=== PATIENT | male | born 1995 | race Two or more races ===

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

== ENCOUNTER 2021-03-17 19:40 | Emergency (ER) | payer BC ==
[~2021-03-17] VITALS: Ht 175.3 cm; Wt 97.5 kg
[2021-03-17 21:20] LABS: Basophils # (auto) 0 10 ^3/uL (0-0.2); Basophils % (auto) 0.4 % (0.0-2.0); Eosinophils # (auto) 0.2 10 ^3/uL (0-0.8); Eosinophils % (auto) 1.7 % (0.0-7.0); Hemoglobin 15.9 g/dL (13.5-17.5); Lymphocytes # (auto) 2.5 10 ^3/uL (0.4-5.4); Lymphocytes % (auto) 23.8 % (10.0-50.0); Mean Corpuscular Hemoglobin 31.7 pg (28.0-32.0); Mean Corpuscular Hgb Conc. 34.6 g/dL (32.0-36.0); Mean Corpuscular Volume 91.5 fL (80.0-100.0); Monocytes # (auto) 0.7 10 ^3/uL (0-1.3); Monocytes % (auto) 6.7 % (0.0-12.0); Neutrophils # (auto) 7.1 10 ^3/uL (1.6-8.6); Neutrophils % (auto) 67.4 % (37.0-80.0); Platelet Count (auto) 262 10^3/uL (140-450); Red Blood Cells 5.02 10^6/uL (4.5-5.90); Red Cell Distribution Width 13.3 % (11.8-14.3); White Blood Cell 10.5 10^3/uL (4.4-10.8)
[2021-03-17 21:30] LABS: Urine Bacteria FEW /hpf (None Seen); Urine Blood Negative /uL (Negative); Urine Mucus FEW (None Seen); Urine Specific Gravity 1.028 (1.001-1.035); Urine WBC 1 /hpf (0 - 3)
[2021-03-17 21:30] LABS: Albumin 4.3 g/dL (3.4-5.0); Calcium 8.9 mg/dL (8.5-10.1); Potassium 3.6 mmol/L (3.5-5.1)
[2021-03-17 21:33] LABS: BUN/Creatinine Ratio 14.2; Bilirubin, Total 0.4 mg/dL (0.2-1.0); Total Protein 7.9 g/dL (6.4-8.2)
[2021-03-18] MEDS ORDERED: KETOROLAC TROMETH 60MG/2ML VIAL IM ONE (00:30)
[2021-03-18 07:48] VITALS: BP 141/85
== END 2021-03-18 07:52 | disposition home or self-care (01) ==
LOC: ER 19:41
DX: S39.012A Strain of muscle, fascia and tendon of lower back, initial encounter (principal); J45.909 Unspecified asthma, uncomplicated; F10.20 Alcohol dependence, uncomplicated; Y90.9 Presence of alcohol in blood, level not specified; W18.39XA Other fall on same level, initial encounter; Y93.89 Activity, other specified; Y92.89 Other specified places as the place of occurrence of the external cause; Y99.8 Other external cause status
CPT/HCPCS: 36415; 71250; 74176; 80053; 81001; 85025; 96372; 99285; J1885

== ENCOUNTER 2023-12-27 04:38 | Emergency (ER) | payer BC, MEDICAID ==
[~2023-12-27] VITALS: Ht 175.3 cm; Wt 78.0 kg
[2023-12-27 04:39] VITALS: BP 129/80; PULSE 59; RESP 18; O2SAT 99
== END 2023-12-27 08:17 | disposition left against medical advice (07) ==
LOC: ER 04:38
DX: R10.9 Unspecified abdominal pain (principal); Z53.21 Procedure and treatment not carried out due to patient leaving prior to being seen by health care provider

== ENCOUNTER 2024-02-16 06:00 | Emergency (ER) | payer SELFPAY | END 2024-02-16 06:58 | disposition left against medical advice (07) | LOC: ER 06:00 | DX: K59.00 Constipation, unspecified (principal); Z53.21 Procedure and treatment not carried out due to patient leaving prior to being seen by health care provider ==

== ENCOUNTER 2024-05-27 07:09 | Emergency (ER) | payer SELFPAY ==
[~2024-05-27] VITALS: Ht 172.7 cm; Wt 86.5 kg
[2024-05-27 09:01] LABS: Basophils # (auto) 0 10 ^3/uL (0-0.2); Basophils % (auto) 0.2 % (0.0-2.0); Eosinophils # (auto) 0.2 10 ^3/uL (0-0.8); Eosinophils % (auto) 1.8 % (0.0-7.0); Hemoglobin 15.9 g/dL (13.5-17.5); Lymphocytes # (auto) 1.5 10 ^3/uL (0.4-5.4); Lymphocytes % (auto) 11.6 % (10.0-50.0); Mean Corpuscular Hemoglobin 33.7 pg (28.0-32.0); Mean Corpuscular Hgb Conc. 34.6 g/dL (32.0-36.0); Mean Corpuscular Volume 97.3 fL (80.0-100.0); Monocytes # (auto) 0.6 10 ^3/uL (0-1.3); Neutrophils # (auto) 10.3 10 ^3/uL (1.6-8.6); Neutrophils % (auto) 81.4 % (37.0-80.0); Platelet Count (auto) 258 10^3/uL (140-450); Red Blood Cells 4.73 10^6/uL (4.5-5.90); Red Cell Distribution Width 13.5 % (11.8-14.3); White Blood Cell 12.6 10^3/uL (4.4-10.8)
[2024-05-27] MEDS: PROCHLORPERAZINE EDISYLATE 5 MG/ML 2ML VIAL IV ONE (09:02)
[2024-05-27] MEDS: SODIUM CHLORIDE 0.9% 1,000 ML IVB ONE (09:02)
[2024-05-27] MEDS: PANTOPRAZOLE 40 MG/10 ML VIAL INJ IV ONE (09:03)
[2024-05-27] MEDS: MORPHINE SULFATE 4 MG/ML SYR/VIAL IV ONE (09:05)
[2024-05-27 09:06] VITALS: TEMP 97; O2SAT 98
[2024-05-27 09:15] LABS: Amphetamine Screen, Urine Neg (NEGATIVE)
[2024-05-27 09:16] LABS: Alanine Aminotransferase 30 U/L (7-40); Albumin 4.4 g/dL (3.2-4.8); Alkaline Phosphatase 68 U/L (46-116); Anion Gap 6 (5-15); Aspartate Aminotransferase 19 U/L (13-40); BUN/Creatinine Ratio 10.1 (10.0-20.0); Bilirubin, Total 0.8 mg/dL (0.2-1.0); Blood Urea Nitrogen 8 mg/dL (9-23); Calcium 9.2 mg/dL (8.7-10.4); Carbon Dioxide 27 mmol/L (20-30); Chloride 106 mmol/L (98-107); Glucose 129 mg/dL (74-106); Lipase 33 U/L (12-53); Potassium 3.6 mmol/L (3.5-5.1); Sodium 139 mmol/L (136-145)
[2024-05-27 09:16] LABS: Barbiturate Scree,Urine Neg (NEGATIVE); Benzodiazephine Screen, Urine Neg (NEGATIVE); Cocaine Screen, Urine Pos (NEGATIVE); Opiate Scree,Urine Neg (NEGATIVE)
[2024-05-27 09:17] LABS: Cannabinoid Screen, Urine Pos (NEGATIVE); Phencyclidine Screen, Urine Neg (NEGATIVE)
[2024-05-27 09:58] VITALS: BP 138/92; PULSE 87; RESP 18
== END 2024-05-27 12:38 | disposition left against medical advice (07) ==
LOC: ER 07:12
DX: K80.20 Calculus of gallbladder without cholecystitis without obstruction (principal); R10.13 Epigastric pain; F14.90 Cocaine use, unspecified, uncomplicated; F12.90 Cannabis use, unspecified, uncomplicated; F17.210 Nicotine dependence, cigarettes, uncomplicated
CPT/HCPCS: 36415; 76705; 80053; 80307; 83690; 85025; 96361; 96374; 96375; 99285; J0780; J2270; J2470; J7030

== ENCOUNTER 2024-05-30 08:13 | Inpatient (IN) | payer MEDICAID ==
[~2024-05-30] VITALS: Ht 172.7 cm; Wt 88.8 kg
--- NOTE | 2024-05-30 09:59 | ED.PDOC ---
GI ASSESSMENT HPI Comments 29 year-old male presents to the ED with a chief complaint of abdominal pain. Patient states that he came to the ED 05/27/24 for epigastric abdominal pain, was diagnosed with gallstones, and left before hospital admission. Patient states that since last ED visit, he has had epigastric abdominal pain with associated nausea and dizziness. Patient has no further symptoms at this time and otherwise denies V/D, fever, chills, migraine, dysuria, hematuria, or constipation. Chief Complaint: Abdominal Pain Time Seen by MD: 09:50 Primary Care Provider: unknown Reviewed Notes: Medications, Allergies Allergies: Coded Allergies: NO KNOWN ALLERGIES (Unverified , 12/31/16) Information Source: Patient Mode of Arrival: Ambulatory Timing: Days (X4 ) Duration: Since onset Prehospital treatment: None Vomitus: None Severity: Moderate Pain Location: Epigastric Associated sign and symptoms: Nausea, Other (Dizziness ) Past Medical History PAST MEDICAL HISTORY: Denies Surgical History: Denies all surgeries Family History Family History: Reviewed,noncontributory to illness, No family hx of Cancer, No family hx of DM, No family hx of Heart rehan, No family hx of HTN, No family hx ofKidney rehan, No family hx of Liver rehan, No family hx of Lung rehan, No family hx of Stroke Social History Smoker: Cigarettes Alcohol: Occasionally Drugs: Denies Drug Use Lives In: Home Constitutional: denies: chills, diaphoresis, fatigue, fever, malaise, sweats, weakness, others EENTM: denies: blurred vision, double vision, ear bleeding, ear discharge, ear drainage, ear pain, ear ringing, eye pain, eye redness, hearing loss, mouth pain, mouth swelling, nasal discharge, nose bleeding, nose congestion, nose pain, photophobia, tearing, throat pain, throat swelling, voice changes, others Respiratory: denies: cough, hemoptysis, orthopnea, SOB at rest, shortness of breath, SOB with excertion, stridor, wheezing, others Cardiovascular: denies: chest pain, dizzy spells, diaphoresis, Dyspnea on exertion, edema, irregular heart beat, left arm pain, lightheadedness, palpitations, PND, syncope, others Gastrointestinal: reports: abdominal pain; denies: abdomen distended, blood streaked bowels, constipated, diarrhea, dysphagia, difficulty swallowing, hematemesis, melena, nausea, poor appetite, poor fluid intake, rectal bleeding, rectal pain, vomiting, others Genitourinary: denies: burning, dysuria, flank pain, frequency, hematuria, incontinence, penile discharge, penile sore, pain, testicle pain, testicle swelling, urgency, others Neurological: denies: dizziness, fainting, headache, left sided numbness, left sided weakness, numbness, paresthesia, pre-existing deficit, right sided numbness, right sided weakness, seizure, speech problems, tingling, tremors, weakness, others Musculoskeletal: denies: back pain, gout, joint pain, joint swelling, muscle pain, muscle stiffness, neck pain, others Integumetry: denies: bruises, change in color, change in hair/nails, dryness, laceration, lesions, lumps, rash, wounds, others Allergic/Immunocompromised: denies: Difficulty Healing, Frequent Infections, Hives, Itching, others Hematologic/Lymphatic: denies: anemia, blood clots, easy bleeding, easy bruising, swollen glands, others Endocrine: denies: excessive hunger, excessive sweating, excessive thirst, excessive urination, flushing, intolerance to cold, intolerance to heat, unexplained weight gain, unexplained weight loss, others Psychiatric: denies: anxiety, bipolar disorder, depression, hopeless, panic disorder, schizophrenia, sleepless, suicidal, others All Other Systems: Reviewed and Negative Physical Exam General Appearance: Moderate Distress, Normal HEENT: Normal ENT Inspection, Pharynx Normal, TMs Normal Neck: Full Range of Motion, Non-Tender, Normal, Normal Inspection Respiratory: Chest Non-Tender, Lungs Clear, No Accessory Muscle Use, No Respiratory Distress, Normal Breath Sounds Cardiovascular: No Edema, No JVD, No Murmur, No Gallop, Normal Peripheral Pulses, Regular Rate/Rhythm Breast Exam: Deferred Gastrointestinal: Epigastric (Pain Upon palpation ), No Organomegaly, No Pulsatile Mass, Normal Bowel Sounds, Soft Genitalia: Deferred Pelvic: Deferred Rectal: Deferred Extremities: No calf tenderness, Normal capillary refill, Normal inspection, Normal range of motion, Non-tender, No pedal edema Musculoskeletal : Apperance: Normal Neurologic: Alert, washateria attendant II-XII nml as Tested, No Motor Deficits, Normal Affect, Normal Mood, No Sensory Deficits Cerebellar Function: Normal Reflexes: Normal Skin: Dry, Normal Color, Warm Lymphatic: No Adenopathy Was a procedure done? Was a procedure done?: No GI differential Dx Differential Diagnosis: Constipation, Gastritis/PUD, Dehydration, Bacterial, Parasitic, Viral Other Differential Diagnosis Gallstones X-Ray, Labs, Meds, VS Vital Signs Date Time Temp Pulse Resp B/P (MAP) Pulse Ox O2 Delivery O2 Flow Rate FiO2 05/30/24 08:43 98.4 76 20 129/85 (100) 98 Lab Test 05/30/24 10:20 Range/Units White Blood Count 12.8 H 4.4-10.8 10^3/uL Red Blood Count 4.95 4.5-5.90 10^6/uL Hemoglobin 16.3 13.5-17.5 g/dL Hematocrit 47.7 41.0-53.0 % Mean Corpuscular Volume 96.4 80.0-100.0 fL Mean Corpuscular Hemoglobin 32.9 H 28.0-32.0 pg Mean Corpuscular Hemoglobin Concent 34.1 32.0-36.0 g/dL Red Cell Distribution Width 13.7 11.8-14.3 % Platelet Count 269 140-450 10^3/uL Mean Platelet Volume 8.7 6.9-10.8 fL Neutrophils (%) (Auto) 82.1 H 37.0-80.0 % Lymphocytes (%) (Auto) 9.7 L 10.0-50.0 % Monocytes (%) (Auto) 7.1 0.0-12.0 % Eosinophils (%) (Auto) 1.0 0.0-7.0 % Basophils (%) (Auto) 0.1 0.0-2.0 % Neutrophils # (Auto) 10.5 H 1.6-8.6 10 ^3/uL Lymphocytes # (Auto) 1.2 0.4-5.4 10 ^3/uL Monocytes # (Auto) 0.9 0-1.3 10 ^3/uL Eosinophils # (Auto) 0.1 0-0.8 10 ^3/uL Basophils # (Auto) 0 0-0.2 10 ^3/uL Nucleated Red Blood Cells 0.1 % Sodium Level 141 136-145 mmol/L Potassium Level 3.6 3.5-5.1 mmol/L Chloride Level 105 98-107 mmol/L Carbon Dioxide Level 29 20-30 mmol/L Anion Gap 7 5-15 Blood Urea Nitrogen 12 9-23 mg/dL Creatinine 0.94 0.700-1.30 mg/dL Glomerular Filtration Rate Calc 114 >90 mL/min BUN/Creatinine Ratio 12.8 10.0-20.0 Serum Glucose 106 74-106 mg/dL Calcium Level 9.5 8.7-10.4 mg/dL Total Bilirubin 1.3 H 0.2-1.0 mg/dL Aspartate Amino Transferase (AST) 422 H 13-40 U/L Alanine Aminotransferase (ALT) 179 H 7-40 U/L Alkaline Phosphatase 141 H 46-116 U/L Troponin I High Sensitivity < 3 L </=54 ng/L Total Protein 7.5 5.7-8.2 g/dL Albumin 4.6 3.2-4.8 g/dL Lipase 43 12-53 U/L Time of 1ST Reevaluation: 10:30 Reevaluation 1ST: Unchanged Patient Education/Counseling: Diagnosis, Treatment Family Education/Counseling: No Family Present Departure 1 Departure Time of Disposition: 11:36 Impression: Primary Impression: Cholecystitis Disposition: ADMITTED INPATIENT Admit to: Med Surg Condition: Stable Critical Care Note Critical Care Time?: No Stability Stability form required: No Heart Score Heart Score: Heart Score Response (Comments) Value History N/A 0 EKG N/A 0 Age N/A 0 Risk Factors N/A 0 Troponin N/A 0 Total 0 I personally scribed for OSMIN RODRIGUEZ MD ([employer]) on 05/30/24 at 09:59. Electronically submitted by Yeimy Wilks ([email or web address]). I personally scribed for OSMIN RODRIGUEZ MD ([employer]) on 05/30/24 at 10:04. Electronically submitted by Yeimy Wilks ([email or web address]). OSMIN RODRIGUEZ MD May 30, 2024 09:59
[2024-05-30 10:42] LABS: Basophils # (auto) 0 10 ^3/uL (0-0.2); Basophils % (auto) 0.1 % (0.0-2.0); Eosinophils # (auto) 0.1 10 ^3/uL (0-0.8); Hematocrit 47.7 % (41.0-53.0); Hemoglobin 16.3 g/dL (13.5-17.5); Lymphocytes # (auto) 1.2 10 ^3/uL (0.4-5.4); Lymphocytes % (auto) 9.7 % (10.0-50.0); Mean Corpuscular Hemoglobin 32.9 pg (28.0-32.0); Mean Corpuscular Hgb Conc. 34.1 g/dL (32.0-36.0); Mean Corpuscular Volume 96.4 fL (80.0-100.0); Monocytes # (auto) 0.9 10 ^3/uL (0-1.3); Monocytes % (auto) 7.1 % (0.0-12.0); Neutrophils # (auto) 10.5 10 ^3/uL (1.6-8.6); Neutrophils % (auto) 82.1 % (37.0-80.0); Nucleated Red Blood Cells % 0.1 %; Platelet Count (auto) 269 10^3/uL (140-450); Red Blood Cells 4.95 10^6/uL (4.5-5.90); Red Cell Distribution Width 13.7 % (11.8-14.3); White Blood Cell 12.8 10^3/uL (4.4-10.8)
[2024-05-30 10:58] LABS: Alanine Aminotransferase 179 U/L (7-40); Albumin 4.6 g/dL (3.2-4.8); Alkaline Phosphatase 141 U/L (46-116); Anion Gap 7 (5-15); Aspartate Aminotransferase 422 U/L (13-40); BUN/Creatinine Ratio 12.8 (10.0-20.0); Bilirubin, Total 1.3 mg/dL (0.2-1.0); Blood Urea Nitrogen 12 mg/dL (9-23); Calcium 9.5 mg/dL (8.7-10.4); Carbon Dioxide 29 mmol/L (20-30); Chloride 105 mmol/L (98-107); Glucose 106 mg/dL (74-106); Lipase 43 U/L (12-53); Potassium 3.6 mmol/L (3.5-5.1); Sodium 141 mmol/L (136-145); Total Protein 7.5 g/dL (5.7-8.2)
[2024-05-30 11:59] VITALS: PULSE 78; RESP 20; O2SAT 98
[2024-05-30] MEDS: PIPERACILLIN-TAZOB 3.375GM 100 ML IV ONE (12:16)
[2024-05-30 12:20] LABS: Urine Bacteria None Seen /hpf (None Seen)
[2024-05-30 12:24] LABS: Urine Blood Negative /uL (Negative); Urine Clarity Clear (Clear); Urine Color Yellow (Yellow); Urine Hyaline Cast FEW /lpf (0 - 2); Urine Mucus FEW (None Seen); Urine Protein, UAD TRACE (Negative); Urine Urobilinogen 3 mg/dL (Negative); Urine WBC 2 /hpf (0 - 3)
--- NOTE | 2024-05-30 12:28 | DVH ---
Exam: CT CT AB PEL WO CON-NO ORAL OR IV History: abd pain Comparison Study: None Technique: Multidetector spiral CT of the abdomen was performed from lung bases to pubic symphysis. Imaging was performed without IV contrast. Axial, coronal and sagittal multiplanar reformats were ob tained from the axial data set by the technologist. Radiation Dose : 1. Abdomen/Pelvis: CTDIvol 12.8 mGy, DLP 658.17 mGy*cm. Findings: Evaluation of solid organs is limited due to lack of intravenous contrast use. Lung Bases: No acute or significant lung base finding. Normal heart size. No pleural or pericardial effusion. Liver: The liver is normal in size. No focal lesions. Gallbladder and Biliary Tree: Gallbladder wall thickening and moderate pericholecystic edema. Spleen: Unremarkable Pancreas: The pancreas is grossly normal in appearance. Adrenal Glands: Unremarkable Kidneys: Kidneys are grossly normal without calculi or hydronephrosis. Bladder: Grossly unremarkable for degree of distention. Bowel: The stomach is grossly normal in appearance. Small bowel and colon are normal in caliber and d istribution. The appendix is not visualized; however, no secondary findings of acute appendicitis id entified. Ascites: Absent Lymphadenopathy: No mesenteric, retroperitoneal or periportal lymphadenopathy. Abdominal Wall and Mesentery: Unremarkable. Vasculature: The visualized abdominal aorta is normal in size and caliber. Evaluation of abdominal a nd pelvic vessels is limited due to lack of intravenous contrast. Pelvic Organs: Unremarkable Musculoskeletal: No aggressive focal bony lesions, acute fractures or dislocation. IMPRESSION: Gallbladder wall thickening, pericholecystic inflammatory change and edema. Findings may represent a cute cholecystitis. Clinical correlation advised. Radiation optimization: All CT scans at this facility use at least one of these dose optimization ana hniques: automated exposure control mA and/or kV adjustment per patient size (includes targeted exam s where dose is matched to clinical indication) or iterative reconstruction.
--- NOTE | 2024-05-30 12:32 | DVHHP2 ---
History of Present Illness Reason for Visit: abd pain History of Present Illness 29 yr old year old male chief complaint patient states he came here on Monday had an ultrasound told he had gallbladder infection he did not want to be admitted so he signed out AMA so he comes back in because at 5:00 a.m. he started having epigastric pain and abdominal pain no nausea and vomiting patient states the pain is so severe he is not able to eat due to the pain denies any chest pain no shortness a breath no tearing sensation in his abdomen when evaluating patient's labs and imaging white count was 12.8, total bili is 1.8 AST was 422 ALT was 179 alkaline phosphatase 141. Troponin negative x2. With these findings we will admit patient ask for General surgery evaluation Past Medical History Denies any medical history Past Surgical History Denies surgical history Family History Reviewed, non-contributory to the management of this case. Past Social History The patient lives at home, denies smoking, alcohol or illicit drugs abuse. Review of Systems Constitutional: No: Fever, Chills, Sweats, Weakness, Malaise, Other Eyes: No: Pain, Vision change, Conjunctivae inflammation, Eyelid inflammation, Other, Redness ENT: No: Ear pain, Ear discharge, Nose pain, Nose discharge, Nose congestion, Mouth pain, Mouth swelling, Throat pain, Throat swelling, Other Respiratory: No: Cough, Dry, Shortness of breath, SOB with excertion, Wheezing, Hemoptysis, Pleuritic Pain, Sputum, Wheezing, Other Cardiovascular: No: Chest Pain, Palpitations, Orthopnea, Paroxysmal Noc. Dyspnea, Edema, Lt Headedness, Other Gastrointestinal: Nausea, Abdominal Pain; No: Vomiting, Diarrhea, Constipation, Melena, Hematochezia, Other Genitourinary: No Dysuria, No Frequency, No Incontinence, No Hematuria, No Retention, No Other Musculoskeletal: No: other, neck pain, shoulder pain, arm pain, back pain, hand pain, leg pain, foot pain Skin: No: Rash, Lesions, Jaundice, Bruising, Other Neurological: No: Weakness, Numbness, Incoordination, Change in speech, Confusion, Seizures, Other Allergies: Coded Allergies: NO KNOWN ALLERGIES (Unverified , 12/31/16) Exam Vital Signs Vital Signs Date Time Temp Pulse Resp B/P (MAP) Pulse Ox O2 Delivery O2 Flow Rate FiO2 05/30/24 11:59 78 20 98 Room Air* 0 21 05/30/24 11:58 98.4 137/88 (104) 98.4 General Appearance: Alert, Oriented X3, Cooperative, No acute distress HEENT: Atraumatic, PERRLA, EOMI, Mucous membr. moist/pink Respiratory: Clear to auscultation, Normal air movement Cardiovascular: Regular rate, Normal S1, Normal S2, No murmurs Abdominal: Normal bowel sounds, Soft, No hepatospenomegaly, No masses, Other (guarding and rebound tenderness ) Extremities: No clubbing, No cyanosis, No edema, Normal pulses, No tenderness/swelling Skin: No rashes, No breakdown, No significant lesion Neuro: Normal gait, Normal speech, Strength at 5/5 X4 ext, Normal tone, Sensation intact, Cranial nerves 3-12 NL Psych/Mental Status: Mental status NL, Mood NL Labs/Xrays Ultrasound with gallbladder infection normal CBD the CT scan abdomen pelvis shows gallbladder infection I reviewed labs, imaging CT scan abdomen pelvis, EKG and all diagnostic studies on this patient from ED records and the medical chart Labs Test 05/30/24 11:30 05/30/24 11:17 05/30/24 10:20 Range/Units Urine Color Yellow Yellow Urine Clarity Clear Clear Urine pH 6.0 5.0-9.0 Urine Specific [place] 1.030 1.001-1.035 Urine Protein Trace H Negative Urine Ketones 1+ H Negative Urine Blood Negative Negative /uL Urine Nitrite Negative Negative Urine Bilirubin Negative Negative Urine Urobilinogen 3 H Negative mg/dL Urine Leukocyte Esterase Negative Negative /uL Urine RBC 2 0 - 3 /hpf Urine WBC 2 0 - 3 /hpf Urine Squamous Epithelial Cells Few <5 /hpf Urine Bacteria None seen None Seen /hpf Urine Hyaline Casts Few 0 - 2 /lpf Urine Mucus Few None Seen Urine Glucose Normal Normal mg/dL Troponin I High Sensitivity < 3 L </=54 ng/L White Blood Count 12.8 H 4.4-10.8 10^3/uL Red Blood Count 4.95 4.5-5.90 10^6/uL Hemoglobin 16.3 13.5-17.5 g/dL Hematocrit 47.7 41.0-53.0 % Mean Corpuscular Volume 96.4 80.0-100.0 fL Mean Corpuscular Hemoglobin 32.9 H 28.0-32.0 pg Mean Corpuscular Hemoglobin Concent 34.1 32.0-36.0 g/dL Red Cell Distribution Width 13.7 11.8-14.3 % Platelet Count 269 140-450 10^3/uL Mean Platelet Volume 8.7 6.9-10.8 fL Neutrophils (%) (Auto) 82.1 H 37.0-80.0 % Lymphocytes (%) (Auto) 9.7 L 10.0-50.0 % Monocytes (%) (Auto) 7.1 0.0-12.0 % Eosinophils (%) (Auto) 1.0 0.0-7.0 % Basophils (%) (Auto) 0.1 0.0-2.0 % Neutrophils # (Auto) 10.5 H 1.6-8.6 10 ^3/uL Lymphocytes # (Auto) 1.2 0.4-5.4 10 ^3/uL Monocytes # (Auto) 0.9 0-1.3 10 ^3/uL Eosinophils # (Auto) 0.1 0-0.8 10 ^3/uL Basophils # (Auto) 0 0-0.2 10 ^3/uL Nucleated Red Blood Cells 0.1 % Sodium Level 141 136-145 mmol/L Potassium Level 3.6 3.5-5.1 mmol/L Chloride Level 105 98-107 mmol/L Carbon Dioxide Level 29 20-30 mmol/L Anion Gap 7 5-15 Blood Urea Nitrogen 12 9-23 mg/dL Creatinine 0.94 0.700-1.30 mg/dL Glomerular Filtration Rate Calc 114 >90 mL/min BUN/Creatinine Ratio 12.8 10.0-20.0 Serum Glucose 106 74-106 mg/dL Calcium Level 9.5 8.7-10.4 mg/dL Total Bilirubin 1.3 H 0.2-1.0 mg/dL Aspartate Amino Transferase (AST) 422 H 13-40 U/L Alanine Aminotransferase (ALT) 179 H 7-40 U/L Alkaline Phosphatase 141 H 46-116 U/L Total Protein 7.5 5.7-8.2 g/dL Albumin 4.6 3.2-4.8 g/dL Lipase 43 12-53 U/L Assessment/Plan Assessment/Plan acute intractable abdominal pain likely from acute cholecystitis found on ct scan abd pelvis ordered morphine as needed for pain npo for now ordered ivf ordered protonix acute cholecystitis found on ct scan abd pelvis N.p.o. for now ordered zosyn ordered IV fluids ordered General surgery consult follow-up recs ordered Protonix ordered Type and screen, inr ordered Morphine and Zofran acute leukocytosis from gallbladder infection ordered zosyn acute transaminitis with elevated t bili cbd found to be normal by us found on 05/27/24 consider gi consult fu results tobacco dependence I counseled the patient for 6 min about smoking suggestions did offer nicotine patch but patient declined patch and tobacco education smoking code [id number] fen/ppx protonix ivf no dvt ppx since ambulatory scd plan admit to medicine general surgery consult and evaluation Plan discussed with: Patient Date of Service: May 30, 2024 Billing Provider: MARY BAY DNP Common Visit Codes: [id number] INP/OBS CARE (HIGH) MARY BAY DNP May 30, 2024 12:32
[2024-05-30] MEDS: MORPHINE SULFATE INJ 2 MG/ml SYRG ONE (13:37)
[2024-05-30] MEDS: ONDANSETRON HCL 4 MG/2 ML VIAL ONE (13:37)
[2024-05-30] MEDS: ONDANSETRON HCL 4 MG/2 ML VIAL IV ONE (13:42)
[2024-05-30] MEDS: MORPHINE SULFATE INJ 2 MG/ml SYRG IV ONE (13:43)
[2024-05-30] MEDS: SODIUM CHLORIDE 0.9% 1,000 ML IV SCH (14:45)
[2024-05-30] MEDS ORDERED: PIPERACILLIN-TAZOB 3.375GM 100 ML IV ONE (14:45)
[2024-05-30] MEDS ORDERED: NITROGLYCERIN 0.4 MG SL TAB SL PRN (14:45)
[2024-05-30] MEDS: PANTOPRAZOLE 40 MG/10 ML VIAL INJ IV ONE (15:25)
[2024-05-30 15:33] LABS: INR 1.01 (0.9-1.15); Prothrombin Time 10.7 sec (9.3-11.8)
[2024-05-30 17:00] VITALS: BP 123/72; PULSE 56; RESP 16; TEMP 98.3
[2024-05-30 17:05] VITALS: RESP 16; O2SAT 98
[2024-05-30] MEDS: PIPERACILLIN-TAZOB 3.375GM 100 ML IV SCH (18:53)
[2024-05-30 19:40] VITALS: PULSE 64; RESP 19; O2SAT 97
[2024-05-30 21:00] VITALS: BP 115/75; PULSE 64; RESP 19; TEMP 98.1; O2SAT 97
[2024-05-30] MEDS: DOCUSATE SOD 100 MG CAP PO PRN (21:20)
[2024-05-31 01:00] VITALS: BP 104/65; PULSE 54; RESP 19; TEMP 97.8; O2SAT 99
[2024-05-31 05:00] VITALS: BP 108/59; PULSE 72; RESP 17; TEMP 97.8; O2SAT 98
[2024-05-31 06:41] LABS: Basophils # (auto) 0 10 ^3/uL (0-0.2); Basophils % (auto) 0.4 % (0.0-2.0); Eosinophils # (auto) 0.5 10 ^3/uL (0-0.8); Eosinophils % (auto) 8.3 % (0.0-7.0); Hematocrit 41.8 % (41.0-53.0); Hemoglobin 14.5 g/dL (13.5-17.5); Lymphocytes # (auto) 1.5 10 ^3/uL (0.4-5.4); Mean Corpuscular Hemoglobin 33.5 pg (28.0-32.0); Mean Corpuscular Hgb Conc. 34.8 g/dL (32.0-36.0); Mean Corpuscular Volume 96.2 fL (80.0-100.0); Monocytes # (auto) 0.6 10 ^3/uL (0-1.3); Monocytes % (auto) 10.3 % (0.0-12.0); Nucleated Red Blood Cells % 0.1 %; Platelet Count (auto) 229 10^3/uL (140-450); Red Blood Cells 4.35 10^6/uL (4.5-5.90); Red Cell Distribution Width 13.6 % (11.8-14.3); White Blood Cell 5.5 10^3/uL (4.4-10.8)
[2024-05-31 06:55] LABS: INR 1.01 (0.9-1.15); Partial Thromboplastin Time 27.1 SEC (24.5-34.5); Prothrombin Time 10.7 sec (9.3-11.8)
[2024-05-31 07:02] LABS: Alanine Aminotransferase 356 U/L (7-40); Alkaline Phosphatase 139 U/L (46-116); Anion Gap 5 (5-15); BUN/Creatinine Ratio 9.2 (10.0-20.0); Blood Urea Nitrogen 9 mg/dL (9-23); Calcium 9.2 mg/dL (8.7-10.4); Carbon Dioxide 29 mmol/L (20-30); Chloride 107 mmol/L (98-107); Glucose 93 mg/dL (74-106); Potassium 3.8 mmol/L (3.5-5.1); Sodium 141 mmol/L (136-145)
[2024-05-31 07:03] LABS: Albumin 3.8 g/dL (3.2-4.8); Aspartate Aminotransferase 286 U/L (13-40)
[2024-05-31 07:04] LABS: Total Protein 6.1 g/dL (5.7-8.2)
[2024-05-31 08:25] VITALS: BP 109/75; PULSE 69; RESP 18; TEMP 97.7; O2SAT 98
[2024-05-31] MEDS: PANTOPRAZOLE 40 MG/10 ML VIAL INJ IV SCH (10:14)
[2024-05-31] MEDS: MORPHINE SULFATE INJ 2 MG/ml SYRG IV PRN (10:15)
--- NOTE | 2024-05-31 12:31 | DVHPN2 ---
Progress Note Date Seen: May 31, 2024 Medical Necessity Reason Pt with a Central, PICC or Fol: No Subjective Patient reports: Other (Patient is having right upper quadrant abdominal pain) Review of Systems: HEENT:Normal, CVS:Normal, RESPIRATORY:Normal, GI:Normal, :Normal, MSK:Normal, NEURO:Normal Objective vital signs Vital Sign Date Time Temp Pulse Resp B/P (MAP) Pulse Ox O2 Delivery O2 Flow Rate FiO2 05/31/24 10:15 69 18 109/75 05/31/24 08:25 97.7 98 97.7 05/31/24 08:00 Room Air* 0 21 Total Intake and Output 05/30/24 05/30/24 05/31/24 15:00 23:00 07:00 Intake Total 100 ml 1396 ml Output Total 825 ml Balance 100 ml 571 ml medications Current Medications Medications Dose Ordered Sig/[place] Route Start Time Stop Time Status Last Admin Dose Admin Piperacillin Sod/ Tazobactam Sod 100 ml @ 25 mls/hr Q6HR IV 05/30/24 18:00 05/31/24 05:18 25 MLS/HR Pantoprazole Sodium 40 mg DAILY IV 05/31/24 10:00 05/31/24 10:14 40 MG Sodium Chloride 1,000 ml @ 120 mls/hr Q8H20M IV 05/30/24 14:45 05/30/24 14:45 120 MLS/HR Ondansetron HCl 4 mg Q4HP PRN IV 05/30/24 14:45 Docusate Sodium 100 mg BIDPRN PRN PO 05/30/24 14:45 05/31/24 10:14 100 MG Morphine Sulfate 2 mg Q4HPRN PRN IV 05/30/24 14:45 05/31/24 10:15 2 MG Nitroglycerin 0.4 mg Q5MINP PRN SL 05/30/24 14:45 Examination: GENERAL:Normal, HEENT:Normal, NECK:Normal, LUNGS:Normal, CVS:Normal, ABDOMEN:Normal, ABDOMEN:Abnormal (Right upper quadrant tenderness), MSK:Normal, SKIN:Normal, NEURO:Normal, :Normal laboratory and microbiology Laboratory Tests 05/31/24 05:07 Test 05/31/24 05:07 Range/Units Serum Glucose 93 74-106 mg/dL Problem List/Assessment/Plan Problem List/Assessment/Plan Acute abdominal pain most likely due to acute cholecystitis - abdomen CT reviewed. Ultrasound noted. Surgical consult noted. Patient is going to get cholecystectomy tomorrow. Continue IV fluids for now. Continue IV antibiotics Plan discussed with: Patient Date of Service: May 31, 2024 Billing Provider: MARIANA MONTOYA MD Common Visit Codes: [id number] INP/OBS CARE(HIGH) MARIANA MONTOYA MD May 31, 2024 12:31
[2024-05-31 13:14] VITALS: BP 134/77; PULSE 68; RESP 17; TEMP 98; O2SAT 98
[2024-05-31 16:20] VITALS: BP 113/83; PULSE 61; RESP 18; TEMP 98.1; O2SAT 98
--- NOTE | 2024-05-31 18:09 | DVH ---
INDICATION: Pain. TECHNIQUE: Multiple real-time sonographic images of the abdomen were obtained. COMPARISON: US GALLBLADDER on DOS: 05/27/24 FINDINGS: The liver is homogenous in echogenicity. The liver measures 13.9 cm. No intrahepatic alondra iary ductal dilatation is noted. The gallbladder wall measures 7 mm cm and is thickened.. No gallstones or sludge is seen. The com mon duct measures 3.4 mm cm and is unremarkable. No pericholecystic fluid is noted. Ultrasound Aaron y's sign is negative. The right kidney measures 11 cm cm. No hydronephrosis. The left kidney is not imaged on this study. The spleen is not imaged on this study. The pancreas is not well visualized due to obscuration from bowel gas. The visualized portions of the IVC and aorta are grossly unremarkable. IMPRESSION: 1. Stones and sludge are noted gallbladder. There is thickening of the gallbladder wall May measuring 7 mm. A negative ultrasound Ledezma's sign elicited. HS:Y
[2024-05-31 21:00] VITALS: BP 107/74; PULSE 52; RESP 18; TEMP 98.2; O2SAT 98
[2024-06-01] VITALS (7 sets, daily range): BP systolic 104–136; BP diastolic 53–95; PULSE 54–95; RESP 14–20; TEMP 97.8–99; O2SAT 96–99
--- NOTE | 2024-06-01 02:57 | DVHINCON2 ---
DATE OF CONSULTATION: 05/31/2024 SURGICAL CONSULTATION HISTORY OF PRESENT ILLNESS: The patient is being evaluated for possibility of cholecystectomy due to severe abdominal pain and evidence of cholecystitis. The patient is a 29-year-old male complaining of abdominal pain. The patient previously in the Emergency Room signed out AMA, returned with severe abdominal and epigastric pain. No prior surgical history. No significant medical history. SOCIAL HISTORY: The patient is a nonsmoker, occasional alcohol drinker. No illicit drug user. ALLERGIES: No known medicinal allergies. REVIEW OF SYSTEMS: Recurring abdominal pain and nausea. Otherwise, the system review is negative for any contributory information PHYSICAL EXAMINATION: GENERAL: Reveals a well-developed, well-nourished male, in no acute distress. HEENT: Pupils equal, round, and react to light equally. Sclerae nonicteric. Extraocular motion is intact. Uvula midline. Trachea midline. NECK: Carotids are full without bruits. Jugular veins are collapsed. HEART: Regular rate and rhythm without murmur or gallop. ABDOMEN: Exquisitely tender in the right upper quadrant. No significant findings on the abdominal examination, otherwise the patient has no CVA tenderness. EXTREMITIES: No peripheral vascular insufficiency. No venous stasis. LABORATORY EVALUATION: Significant for leukocytosis on admission of 12.8 with an elevated neutrophil count 82.1. The patient's INR is 1.01. PT is 10.7. Chemistry on admission -- bilirubin 1.3. Liver enzymes elevated with elevated alkaline phosphatase. The patient's imaging consisted of an abdominal CT scan, which is interpreted as showing gallbladder wall thickening, pericholecystic inflammatory changes consistent with cholecystitis and cholelithiasis will be confirmed by ultrasound, which I ordered. IMPRESSION AND PLAN: The patient is a suitable candidate for cholecystectomy. The risks and potential complications were all explained to him with his mother at bedside. Guido Freitas MD PF TID: [id number] RECEIPT: [id number]
[2024-06-01 06:34] LABS: Basophils # (auto) 0 10 ^3/uL (0-0.2); Basophils % (auto) 0.4 % (0.0-2.0); Eosinophils # (auto) 0.6 10 ^3/uL (0-0.8); Eosinophils % (auto) 10.7 % (0.0-7.0); Hematocrit 42.8 % (41.0-53.0); Hemoglobin 14.9 g/dL (13.5-17.5); Lymphocytes % (auto) 33.1 % (10.0-50.0); Mean Corpuscular Hemoglobin 33.3 pg (28.0-32.0); Mean Corpuscular Hgb Conc. 34.8 g/dL (32.0-36.0); Mean Corpuscular Volume 95.7 fL (80.0-100.0); Monocytes # (auto) 0.5 10 ^3/uL (0-1.3); Monocytes % (auto) 8.6 % (0.0-12.0); Neutrophils # (auto) 2.8 10 ^3/uL (1.6-8.6); Neutrophils % (auto) 47.2 % (37.0-80.0); Nucleated Red Blood Cells % 0.1 %; Platelet Count (auto) 239 10^3/uL (140-450); Red Blood Cells 4.47 10^6/uL (4.5-5.90)
[2024-06-01 06:42] LABS: Anion Gap 6 (5-15); Calcium 9.5 mg/dL (8.7-10.4); Carbon Dioxide 26 mmol/L (20-30); Chloride 105 mmol/L (98-107); Potassium 3.7 mmol/L (3.5-5.1); Sodium 137 mmol/L (136-145)
[2024-06-01 06:48] LABS: BUN/Creatinine Ratio 7.9 (10.0-20.0); Blood Urea Nitrogen 7 mg/dL (9-23); Glucose 85 mg/dL (74-106)
[2024-06-01] MEDS: LIDOCAINE W/ EPINEPHRINE 1% 20ML VIAL ONE (06:49)
[2024-06-01] MEDS: BUPIVACAINE HCL 0.25% P/F 10 ML VIAL ONE (06:49)
[2024-06-01] MEDS: ceFAZolin 2 GM/D5W50ml 50 ML IV ONE (08:39)
[2024-06-01] MEDS: ONDANSETRON HCL 4 MG/2 ML VIAL IV ONE (08:45)
[2024-06-01] MEDS ORDERED: HYDROmorphone HCL 2 MG/ML VL/or syr IV PRN (08:45)
[2024-06-01] MEDS ORDERED: fentaNYL CITRATE 100 MCG/2 ML VL IV PRN (08:45)
[2024-06-01] MEDS ORDERED: PROPOFOL 10 MG/ML 20 ML IV ONE (08:49)
[2024-06-01] MEDS ORDERED: MIDAZOLAM HCL 2MG/2ML 2ml VIAL (1mg/ml) ONE (08:49)
[2024-06-01] MEDS ORDERED: fentaNYL CITRATE 100 MCG/2 ML VL ONE (08:49)
[2024-06-01] MEDS ORDERED: ROCURONIUM 10MG/ML 10ML VIAL IV ONE (08:50)
[2024-06-01] MEDS ORDERED: DexAMETHasone SOD PHOS 10MG/1ML VIAL INJ ONE (08:50)
[2024-06-01] MEDS ORDERED: ONDANSETRON HCL 4 MG/2 ML VIAL ONE (08:50)
[2024-06-01] MEDS ORDERED: SUGAMMADEX 200mg/2ml Vial (100MG/ML) IV ONE (09:21)
[2024-06-01] MEDS ORDERED: MEPERIDINE HCL (50 MG/ML) 1 ML VIAL ONE (09:29)
[2024-06-01] MEDS: HYDROmorphone HCL 2 MG/ML VL/or syr IV ONE (10:18)
--- NOTE | 2024-06-01 11:30 | DVHPN2 ---
Reviewed: Care Plan, H&P, Labs, Medications, Previous Orders, Radiology Changes from previous H/P or p: No Changes Eyes: No Pain, No Vision change, No Conjunctivae inflammation, No Eyelid inflammation, No Other, No Redness ENT: No Ear pain, No Ear discharge, No Nose pain, No Nose discharge, No Nose congestion, No Mouth pain, No Mouth swelling, No Throat pain, No Throat swelling, No Other Cardiovascular: No Chest Pain, No Palpitations, No Orthopnea, No Paroxysmal Noc. Dyspnea, No Edema, No Lt Headedness, No Other Respiratory: No Cough, No Dry, No Shortness of breath, No SOB with excertion, No Wheezing, No Hemoptysis, No Pleuritic Pain, No Sputum, No Other Gastrointestinal: Nausea; No Vomiting; Abdominal Pain; No Diarrhea, No Constipation, No Melena, No Hematochezia, No Other Genitourinary: No Dysuria, No Frequency, No Incontinence, No Hematuria, No Retention, No Other Musculoskeletal: No other, No neck pain, No shoulder pain, No arm pain, No back pain, No hand pain, No leg pain, No foot pain Skin: No Rash, No Lesions, No Jaundice, No Bruising, No Other Objective Vitals Vital Signs Date Time Temp Pulse Resp B/P (MAP) Pulse Ox O2 Delivery O2 Flow Rate FiO2 06/01/24 09:49 95 16 99 Mask 7.0 06/01/24 09:49 99 06/01/24 09:49 97.5 147/84 (105) 97.5 Intake/Output Intake and Output 06/01/24 07:00 Intake Total 700 ml Balance 700 ml Intake Oral 0 ml IV Total 700 ml # Voids 6 Medications Current Medications Medications Dose Ordered Sig/Moreno Route Start Time Stop Time Status Last Admin Dose Admin Piperacillin Sod/ Tazobactam Sod 100 ml @ 25 mls/hr Q6HR IV 05/30/24 18:00 06/01/24 07:12 25 MLS/HR Pantoprazole Sodium 40 mg DAILY IV 05/31/24 10:00 05/31/24 10:14 40 MG Sodium Chloride 1,000 ml @ 120 mls/hr Q8H20M IV 05/30/24 14:45 06/01/24 00:35 120 MLS/HR Ondansetron HCl 4 mg Q4HP PRN IV 05/30/24 14:45 Docusate Sodium 100 mg BIDPRN PRN PO 05/30/24 14:45 05/31/24 10:14 100 MG Morphine Sulfate 2 mg Q4HPRN PRN IV 05/30/24 14:45 05/31/24 18:31 2 MG Nitroglycerin 0.4 mg Q5MINP PRN SL 05/30/24 14:45 Laboratory Results Laboratory Tests 06/01/24 05:17 Chemistry Test 06/01/24 05:17 Calcium Level 9.5 mg/dL (8.7-10.4) Urinalysis Test 05/30/24 11:30 Urine Color Yellow (Yellow) Urine Clarity Clear (Clear) Urine pH 6.0 (5.0-9.0) Urine Specific [place] 1.030 (1.001-1.035) Urine Protein Trace (Negative) H Urine Ketones 1+ (Negative) H Urine Blood Negative /uL (Negative) Urine Nitrite Negative (Negative) Urine Bilirubin Negative (Negative) Urine Urobilinogen 3 mg/dL (Negative) H Urine Leukocyte Esterase Negative /uL (Negative) Urine RBC 2 /hpf (0 - 3) Urine WBC 2 /hpf (0 - 3) Urine Squamous Epithelial Cells Few /hpf (<5) Urine Bacteria None seen /hpf (None Seen) Urine Hyaline Casts Few /lpf (0 - 2) Urine Mucus Few (None Seen) Urine Glucose Normal mg/dL (Normal) Microbiology Microbiology Date/Time Source Procedure Growth Status 05/30/24 20:00 Nose MRSA Screen - Final Complete Labs and/or images reviewed: Labs reviewed by me, Image(s) reviewed by me Assessment/Plan Assessment/Plan Sepsis secondary to acute cholecystitis Acute cholecystitis: Zosyn patient is undergoing lap sherman today by Acute abdominal pain Acute dehydration: IV fluids Elevated liver function tests Plan discussed with: Patient Date of Service: Jun 01, 2024 Billing Provider: FRANK OLIVEROS MD Common Visit Codes: [id number] INP/OBS CARE(HIGH) FRANK OLIVEROS MD Jun 01, 2024 11:30
[2024-06-01] MEDS: D5W/SOD CHL 0.45%/KCL 20MEQ 1,000 ML IV ONE (13:33)
[2024-06-01] MEDS: ONDANSETRON HCL 4 MG/2 ML VIAL IV PRN (13:34)
--- NOTE | 2024-06-02 00:43 | DVHOP ---
DATE OF SURGERY: 06/01/2024 PREOPERATIVE DIAGNOSES: Cholelithiasis, cholecystitis. POSTOPERATIVE DIAGNOSES: Cholelithiasis, cholecystitis. SURGEON: Guido Freitas MD TUBE LANCER: Cristiano Agustin NP ANESTHESIA: General endotracheal. ANESTHESIOLOGIST: Dr. Darnell Aaron. PROCEDURE: Laparoscopy, laparoscopic cholecystectomy. DESCRIPTION OF PROCEDURE: Under general endotracheal anesthesia, with the patient's abdomen prepped and draped, a supraumbilical incision was accomplished. Veress needle inserted into the peritoneal cavity by the hanging drop technique in order to establish pneumoperitoneum to 15 mmHg pressure by insufflation with carbon dioxide. With the abdomen fully distended, the needle was removed and replaced with a 5 mm trocar port through which a 0-degree viewing laparoscope was inserted. Under direct vision, additional 5 and 10 mm ports inserted through the right anterior axillary line at the level of the umbilicus and through the subxiphoid skin respectively. Instrumentation was introduced. Laparoscopy was performed revealing no unexpected pathology. The gallbladder was placed on tension. The cystic duct and cystic artery were identified, circumferentially dissected and skeletonized, traced into the hepaticocystic triangle so as to minimize the potential for inadvertent injury to the common bile duct. The cystic duct and cystic artery were divided between metallic clips close to the gallbladder. The gallbladder then resected from its liver bed by electrocautery and traction. The fully mobilized gallbladder was removed from the peritoneal cavity by the subxiphoid incision after having been placed in a specimen extraction bag. The right upper quadrant was profusely irrigated, irrigant was aspirated. Hemostasis was meticulously accomplished, was assisted by placement of small amount of hemostatic SNoW and placement of an amniotic allograft. Following assurance of complete hemostasis, the instrumentation withdrawn. Pneumoperitoneum was evacuated. Wounds approximated using Monocryl sutures, Dermabond glue and Steri-Strips. The patient remained stable throughout the procedure, left the operating room following an accurate needle and sponge count. His family was thoroughly informed at [phone]. Guido Freitas MD PF TID: [id number] RECEIPT: [id number]
[2024-06-02 01:00] VITALS: BP 121/67; PULSE 59; RESP 15; TEMP 98.6; O2SAT 96
[2024-06-02 05:00] VITALS: BP 125/80; PULSE 59; RESP 17; TEMP 98; O2SAT 99
[2024-06-02 06:09] LABS: Basophils # (auto) 0 10 ^3/uL (0-0.2); Basophils % (auto) 0.1 % (0.0-2.0); Eosinophils # (auto) 0.1 10 ^3/uL (0-0.8); Hematocrit 41.1 % (41.0-53.0); Hemoglobin 14.2 g/dL (13.5-17.5); Mean Corpuscular Hemoglobin 33.2 pg (28.0-32.0); Mean Corpuscular Hgb Conc. 34.6 g/dL (32.0-36.0); Mean Corpuscular Volume 95.8 fL (80.0-100.0); Monocytes # (auto) 0.9 10 ^3/uL (0-1.3); Monocytes % (auto) 8.4 % (0.0-12.0); Neutrophils # (auto) 7.9 10 ^3/uL (1.6-8.6); Neutrophils % (auto) 72.5 % (37.0-80.0); Platelet Count (auto) 244 10^3/uL (140-450); Red Blood Cells 4.29 10^6/uL (4.5-5.90); Red Cell Distribution Width 13.3 % (11.8-14.3); White Blood Cell 10.9 10^3/uL (4.4-10.8)
[2024-06-02 09:45] VITALS: BP 126/83; PULSE 61; RESP 20; TEMP 97.9; O2SAT 95
[2024-06-02 09:49] VITALS: BP 126/84; PULSE 61; RESP 20; TEMP 97.9; O2SAT 95
--- NOTE | 2024-06-02 10:53 | DVHPN2 ---
Reviewed: Care Plan, H&P, Labs, Medications, Previous Orders, Radiology Changes from previous H/P or p: No Changes Eyes: No Pain, No Vision change, No Conjunctivae inflammation, No Eyelid inflammation, No Other, No Redness ENT: No Ear pain, No Ear discharge, No Nose pain, No Nose discharge, No Nose congestion, No Mouth pain, No Mouth swelling, No Throat pain, No Throat swelling, No Other Cardiovascular: No Chest Pain, No Palpitations, No Orthopnea, No Paroxysmal Noc. Dyspnea, No Edema, No Lt Headedness, No Other Respiratory: No Cough, No Dry, No Shortness of breath, No SOB with excertion, No Wheezing, No Hemoptysis, No Pleuritic Pain, No Sputum, No Other Gastrointestinal: Nausea; No Vomiting; Abdominal Pain; No Diarrhea, No Constipation, No Melena, No Hematochezia, No Other Genitourinary: No Dysuria, No Frequency, No Incontinence, No Hematuria, No Retention, No Other Musculoskeletal: No other, No neck pain, No shoulder pain, No arm pain, No back pain, No hand pain, No leg pain, No foot pain Skin: No Rash, No Lesions, No Jaundice, No Bruising, No Other Objective Vitals Vital Signs Date Time Temp Pulse Resp B/P (MAP) Pulse Ox O2 Delivery O2 Flow Rate FiO2 06/02/24 09:49 97.9 61 20 126/84 (98) 95 97.9 06/02/24 07:35 Room Air* 0 21 Intake/Output Intake and Output 06/02/24 07:00 Intake Total 1300 ml Output Total 500 ml Balance 800 ml Intake Oral 1300 ml Output Urine Total 500 ml # Voids 3 Medications Current Medications Medications Dose Ordered Sig/Moreno Route Start Time Stop Time Status Last Admin Dose Admin Piperacillin Sod/ Tazobactam Sod 100 ml @ 25 mls/hr Q6HR IV 05/30/24 18:00 06/02/24 05:31 25 MLS/HR Pantoprazole Sodium 40 mg DAILY IV 05/31/24 10:00 06/02/24 09:47 40 MG Sodium Chloride 1,000 ml @ 120 mls/hr Q8H20M IV 05/30/24 14:45 06/02/24 00:48 120 MLS/HR Ondansetron HCl 4 mg Q4HP PRN IV 05/30/24 14:45 8/31/24 13:34 4 MG Docusate Sodium 100 mg BIDPRN PRN PO 05/30/24 14:45 05/31/24 10:14 100 MG Morphine Sulfate 2 mg Q4HPRN PRN IV 05/30/24 14:45 06/02/24 05:33 2 MG Nitroglycerin 0.4 mg Q5MINP PRN SL 05/30/24 14:45 Laboratory Results Laboratory Tests 06/01/24 05:17 06/02/24 05:12 LFT Test 06/02/24 05:12 Total Bilirubin 0.8 mg/dL (0.2-1.0) Urinalysis Test 05/30/24 11:30 Urine Color Yellow (Yellow) Urine Clarity Clear (Clear) Urine pH 6.0 (5.0-9.0) Urine Specific [place] 1.030 (1.001-1.035) Urine Protein Trace (Negative) H Urine Ketones 1+ (Negative) H Urine Blood Negative /uL (Negative) Urine Nitrite Negative (Negative) Urine Bilirubin Negative (Negative) Urine Urobilinogen 3 mg/dL (Negative) H Urine Leukocyte Esterase Negative /uL (Negative) Urine RBC 2 /hpf (0 - 3) Urine WBC 2 /hpf (0 - 3) Urine Squamous Epithelial Cells Few /hpf (<5) Urine Bacteria None seen /hpf (None Seen) Urine Hyaline Casts Few /lpf (0 - 2) Urine Mucus Few (None Seen) Urine Glucose Normal mg/dL (Normal) Microbiology Microbiology Date/Time Source Procedure Growth Status 05/30/24 20:00 Nose MRSA Screen - Final Complete Labs and/or images reviewed: Labs reviewed by me, Image(s) reviewed by me Assessment/Plan Assessment/Plan Sepsis secondary to acute cholecystitis Acute cholecystitis: Zosyn status post lap sherman by Dr. Freitas on 06/01/2024 Acute abdominal pain Acute dehydration: IV fluids Elevated liver function tests secondary to cholecystitis Patient is tolerating regular diet Dr. Freitas cleared for discharge Plan discussed with: Patient Date of Service: Jun 02, 2024 Billing Provider: FRANK OLIVEROS MD Common Visit Codes: [id number] INP/OBS CARE(HIGH) FRANK OLIVEROS MD Jun 02, 2024 10:53
[2024-06-02] MEDS ORDERED: LEVO500T91 PO (10:55)
[2024-06-02] MEDS ORDERED: METR-344 PO (10:55)
[2024-06-02] MEDS ORDERED: HYDR-4902 PO (10:55)
--- NOTE | 2024-06-02 11:00 | DVHDS2 ---
Discharge Summary Date of Admission May 30, 2024 at 14:35 Date of Discharge: Jun 02, 2024 Admitting Diagnosis Right upper quadrant abdominal pain Wounds: Laparoscopic cholecystectomy Labs/Diagnostic Data: Laboratory Results Test 06/02/24 05:12 05/31/24 05:07 05/30/24 11:30 05/30/24 11:17 White Blood Count 10.9 10^3/uL (4.4-10.8) Red Blood Count 4.29 10^6/uL (4.5-5.90) Hemoglobin 14.2 g/dL (13.5-17.5) Hematocrit 41.1 % (41.0-53.0) Mean Corpuscular Volume 95.8 fL (80.0-100.0) Mean Corpuscular Hemoglobin 33.2 pg (28.0-32.0) Mean Corpuscular Hemoglobin Concent 34.6 g/dL (32.0-36.0) Red Cell Distribution Width 13.3 % (11.8-14.3) Platelet Count 244 10^3/uL (140-450) Mean Platelet Volume 8.8 fL (6.9-10.8) Neutrophils (%) (Auto) 72.5 % (37.0-80.0) Lymphocytes (%) (Auto) 18.0 % (10.0-50.0) Monocytes (%) (Auto) 8.4 % (0.0-12.0) Eosinophils (%) (Auto) 1.0 % (0.0-7.0) Basophils (%) (Auto) 0.1 % (0.0-2.0) Neutrophils # (Auto) 7.9 10 ^3/uL (1.6-8.6) Lymphocytes # (Auto) 2.0 10 ^3/uL (0.4-5.4) Monocytes # (Auto) 0.9 10 ^3/uL (0-1.3) Eosinophils # (Auto) 0.1 10 ^3/uL (0-0.8) Basophils # (Auto) 0 10 ^3/uL (0-0.2) Nucleated Red Blood Cells 0.0 % Prothrombin Time 10.7 sec (9.3-11.8) Prothrombin Time INR 1.01 (0.9-1.15) Activated Partial Thromboplast Time 27.1 SEC (24.5-34.5) Urine Color Yellow (Yellow) Urine Clarity Clear (Clear) Urine pH 6.0 (5.0-9.0) Urine Specific [place] 1.030 (1.001-1.035) Urine Protein Trace (Negative) Urine Ketones 1+ (Negative) Urine Blood Negative /uL (Negative) Urine Nitrite Negative (Negative) Urine Bilirubin Negative (Negative) Urine Urobilinogen 3 mg/dL (Negative) Urine Leukocyte Esterase Negative /uL (Negative) Urine RBC 2 /hpf (0 - 3) Urine WBC 2 /hpf (0 - 3) Urine Squamous Epithelial Cells Few /hpf (<5) Urine Bacteria None seen /hpf (None Seen) Urine Hyaline Casts Few /lpf (0 - 2) Urine Mucus Few (None Seen) Urine Glucose Normal mg/dL (Normal) Troponin I High Sensitivity < 3 ng/L (</=54) Test 05/30/24 10:20 Lipase 43 U/L (12-53) Other Laboratory Tests 06/02/24 05:12 Brief Hx & Hospital Course: 29-year-old male came in for right upper quadrant abdominal pain found to be in sepsis secondary to acute cholecystitis started on Zosyn underwent laparoscopic cholecystectomy by Dr. Freitas 06/01/2024. Postop course uneventful. At the time of discharge afebrile minimal pain cleared for discharge by the surgeon discharged home on Levaquin Flagyl and [place] he will follow up with surgeon in two weeks. Liver function tests were elevated secondary to the acute cholecystitis which has been trending down Consults/Reason for consult Surgeon Dr. Freitas Operations or Procedures Laparoscopic cholecystectomy Condition at Discharge: Fair Final Diagnosis/Problems List Sepsis secondary to acute cholecystitis Acute cholecystitis: Zosyn status post lap sherman by Dr. Freitas on 06/01/2024 Acute abdominal pain Acute dehydration: IV fluids Elevated liver function tests secondary to cholecystitis Discharge Disposition: Home Discharge Instruct/Medications Diet: Regular Activity: Light activity Follow Up/Referral: Follow up with surgeon Dr. Freitas in two weeks Medications: Levaquin Flagyl [place] Transmitted to pharmacy 35 (TimeTaken forDischarge summary 35 minutes) Discharge Statement: "Patient was advised to return to the ER or call 911 if any headaches, dizziness, shortness of breath, chest pain, abdominal pain, bleeding, fevers, or worsening of medical condition. Patient was counseled about treatment plan, medications, possible side effects, patientverbalized understanding. All questions were answered to the best of my ability. This discharge took greater then 30 minutes in planning, reviewing documentation, counseling the patient, and discussing with other team members." ASSESSMENT ASSESSMENT Hospital Course Improved Assessment Sepsis secondary to acute cholecystitis Acute cholecystitis: Zosyn status post lap sherman by Dr. Freitas on 06/01/2024 Acute abdominal pain Acute dehydration: IV fluids Elevated liver function tests secondary to cholecystitis Date of Service: Jun 02, 2024 Billing Provider: FRANK OLIVEROS MD Common Visit Codes: [id number] DISCH DAY >30min FRANK OLIVEROS MD Jun 02, 2024 11:00
[2024-06-02 11:14] LABS: Alanine Aminotransferase 182 U/L (7-40); Albumin 3.9 g/dL (3.2-4.8); Alkaline Phosphatase 98 U/L (46-116); Anion Gap 5 (5-15); Aspartate Aminotransferase 55 U/L (13-40); Calcium 9.5 mg/dL (8.7-10.4); Carbon Dioxide 26 mmol/L (20-30); Chloride 107 mmol/L (98-107); Glucose 135 mg/dL (74-106); Potassium 3.9 mmol/L (3.5-5.1); Sodium 138 mmol/L (136-145)
[2024-06-02 11:15] LABS: Bilirubin, Total 0.7 mg/dL (0.2-1.0); Total Protein 6.3 g/dL (5.7-8.2)
--- NOTE | 2024-06-02 11:29 | DVHPN2 ---
Progress Note Date Seen: Jun 02, 2024 Medical Necessity Reason Pt with a Central, PICC or Fol: No Objective vital signs Vital Sign Date Time Temp Pulse Resp B/P (MAP) Pulse Ox O2 Delivery O2 Flow Rate FiO2 06/02/24 09:49 97.9 61 20 126/84 (98) 95 97.9 06/02/24 07:35 Room Air* 0 21 Total Intake and Output 06/01/24 06/01/24 06/02/24 15:00 23:00 07:00 Intake Total 1100 ml 200 ml Output Total 500 ml Balance 1100 ml -300 ml medications Current Medications Medications Dose Ordered Sig/Moreno Route Start Time Stop Time Status Last Admin Dose Admin Piperacillin Sod/ Tazobactam Sod 100 ml @ 25 mls/hr Q6HR IV 05/30/24 18:00 06/02/24 05:31 25 MLS/HR Pantoprazole Sodium 40 mg DAILY IV 05/31/24 10:00 06/02/24 09:47 40 MG Sodium Chloride 1,000 ml @ 120 mls/hr Q8H20M IV 05/30/24 14:45 06/02/24 00:48 120 MLS/HR Ondansetron HCl 4 mg Q4HP PRN IV 05/30/24 14:45 06/01/24 13:34 4 MG Docusate Sodium 100 mg BIDPRN PRN PO 05/30/24 14:45 05/31/24 10:14 100 MG Morphine Sulfate 2 mg Q4HPRN PRN IV 05/30/24 14:45 06/02/24 05:33 2 MG Nitroglycerin 0.4 mg Q5MINP PRN SL 05/30/24 14:45 laboratory and microbiology Laboratory Tests 06/02/24 05:12 Test 06/02/24 05:12 Range/Units Serum Glucose Pending Problem List/Assessment/Plan Problem List/Assessment/Plan 06/02/24 DOING WELL, AT BEDSIDE, WOUNDS CLEAN AND WELL APPROXIMATED, ABDOMEN APPROPRIATELY TENDER, BILIRUBIN NL, OK TO DISCHARGE, MAY SHHOWER AFTER 72 HOURS, DIET TOLERATED Plan discussed with: Patient, Other DINO CAVANAUGH MD Jun 02, 2024 11:29
[2024-06-02 11:37] LABS: BUN/Creatinine Ratio 6.1 (10.0-20.0); Blood Urea Nitrogen < 5 mg/dL (9-23)
== END 2024-06-02 11:50 | disposition home or self-care (01) | DRG 263 ==
LOC: ER 08:13 → OVERFLOW 14:35 → WEST WING 16:59
PROVIDERS: ADMIT Nurse Practitioner Family; ATTEND Nurse Practitioner Family
PROC: 0FT44ZZ Resection of Gallbladder, Percutaneous Endoscopic Approach (ICD-10-PCS; principal; 2024-06-01 08:58)
DX: K80.00 Calculus of gallbladder with acute cholecystitis without obstruction (principal); D72.829 Elevated white blood cell count, unspecified; R74.01 Elevation of levels of liver transaminase levels; F17.210 Nicotine dependence, cigarettes, uncomplicated; E86.0 Dehydration; Z53.29 Procedure and treatment not carried out because of patient's decision for other reasons
CPT/HCPCS: 36415; 74176; 76705; 80048; 80053; 81001; 82247; 83690; 84484; 85025; 85610; 85730; 86850; 86900; 86901; 87081; G0378; J1100; J2250; J2405; J2470; J2543; J2704; J3490